=== PATIENT | female | born 1955 | race Caucasian/White ===

== ENCOUNTER 2018-04-23 06:20 | Day surgery (SDC) | payer OTHER ==
[2018-04-23] MEDS ORDERED: CEFAZOLIN 1 GM/50 ML (PMX) 50 ML IVPB (07:00)
[2018-04-23 08:27] LABS: ADD MAN DIFF? NO
[2018-04-23 08:28] LABS: BASOPHIL # 0.1 10^3/ul (0.0-0.1); BASOPHILS % 1.3 % (0.0-2.0); EOSINOPHILS # 0.1 10^3/ul (0.0-0.5); EOSINOPHILS % 2.7 % (0.0-7.0); HEMATOCRIT 40.2 % (37.0-47.0); HEMOGLOBIN 13.5 g/dl (12.0-16.0); LYMPHOCYTES # 1.8 10^3/ul (0.8-2.9); LYMPHOCYTES % 38.1 % (15.0-51.0); MEAN CORPUSCULAR HEMOGLOBIN 29.7 pg (29.0-33.0); MEAN CORPUSCULAR HGB CONC 33.6 g/dl (32.0-37.0); MEAN CORPUSCULAR VOLUME 88.4 fl (82.0-101.0); MONOCYTE # 0.4 10^3/ul (0.3-0.9); NEUTROPHIL # 2.4 10^3/ul (1.6-7.5); NEUTROPHILS % 49.7 % (39.0-77.0); PLATELET COUNT 215 10^3/UL (140-415); RED BLOOD COUNT 4.55 10^6/ul (4.20-5.40); RED CELL DISTRIBUTION WIDTH 12.2 % (11.5-14.5)
[2018-04-23 08:28] LABS: WHITE BLOOD COUNT 4.8 10^3/ul (4.8-10.8)
[2018-04-23 08:48] LABS: INR 1.02; PARTIAL THROMBOPLASTIN TIME 29.7 Sec (23.0-35.0); PROTIME 13.5 Sec (11.9-14.9); PT RATIO 1.1
[2018-04-23 08:59] LABS: ALANINE AMINOTRANSFERASE 24 IU/L (13-69); ALBUMIN 4.6 g/dl (3.3-4.9); ALBUMIN/GLOBULIN RATIO 1.39; ALKALINE PHOSPHATASE 63 IU/L (42-121); ANION GAP 7 (5-13); ASPARTATE AMINO TRANSFERASE 26 IU/L (15-46); BLOOD UREA NITROGEN 12 mg/dl (7-20); CALCIUM 9.4 mg/dl (8.4-10.2); CARBON DIOXIDE 29 mmol/L (21-31); CHLORIDE 107 mmol/L (97-110); CREATININE 0.56 mg/dl (0.44-1.00); Estimated GFR > 60 mL/min (>60); GLUCOSE 94 mg/dl (70-220); POTASSIUM 3.8 mmol/L (3.5-5.1); SODIUM 143 mmol/L (135-144); TOTAL PROTEIN 7.9 g/dl (6.1-8.1)
[2018-04-23] MEDS ORDERED: LIDOCAINE 2% (SDV) 5 ML INJ (10:00)
[2018-04-23] MEDS ORDERED: SEVOFLURANE 15 MIN (10:00)
[2018-04-23] MEDS ORDERED: CEFAZOLIN 1 GM INJ (10:00)
[2018-04-23] MEDS ORDERED: PROPOFOL 100 ML (10:17)
[2018-04-23] MEDS ORDERED: ROCURONIUM 50 MG INJ (10:22)
[2018-04-23] MEDS ORDERED: BUPIVACAINE 0.25% (MPF) 30 ML INJ (10:25)
[2018-04-23] MEDS ORDERED: BUPIVACAINE 0.25%/EPI (SDV) 10 ML INJ (11:00)
[2018-04-23] MEDS: BUPIVACAINE 0.25%/EPI (SDV) 10 ML INJ (11:06)
[2018-04-23] MEDS ORDERED: ONDANSETRON 4 MG INJ (11:12)
[2018-04-23] MEDS ORDERED: DEXAMETHASONE 4 MG/ML 1 ML INJ (11:12)
[2018-04-23] MEDS ORDERED: KETOROLAC 30 MG INJ (11:13)
[2018-04-23] MEDS ORDERED: INDIGOTINDISULFONATE 0.8% 5 ML INJ (11:53)
[2018-04-23] MEDS ORDERED: FUROSEMIDE 20 MG INJ (11:55)
[2018-04-23] MEDS ORDERED: FENTAnyl 50 MCG/ML VIAL IV ×3 (13:00)
[2018-04-23] MEDS ORDERED: DIPHENHYDRAMINE 50 MG INJ IV (13:00)
[2018-04-23] MEDS ORDERED: OXYCODONE/ACETAMINOPHEN (5/325) TAB PO ×2 (13:00)
[2018-04-23] MEDS ORDERED: HYDROmorphONE 1 MG/5 ML IV SYRINGE IV ×3 (13:00)
[2018-04-23] MEDS ORDERED: EPHEDrine SULFATE 50 MG/5 ML SYG IV (13:00)
[2018-04-23] MEDS ORDERED: LABETALOL HCL 20MG INJ IV (13:00)
[2018-04-23] MEDS ORDERED: ALBUTEROL 0.083% (NEB) 2.5 MG/3 ML AMP HHN (13:00)
[2018-04-23] MEDS ORDERED: hydrALAzine 20 MG INJ IV (13:00)
[2018-04-23] MEDS ORDERED: MEPERIDINE 25 MG INJ IV (13:00)
[2018-04-23] MEDS ORDERED: ONDANSETRON 4 MG INJ IV (13:00)
[2018-04-23 13:18] LABS: ERYTHROCYTE SEDIMENTATION RATE 13 mm/Hr (0-30)
== END 2018-04-23 14:30 | disposition home or self-care (01) ==
LOC: SDS 06:20
DX: N81.10 Cystocele, unspecified (principal); R23.4 Changes in skin texture
CPT/HCPCS: 52351; 80053; 85025; 85610; 85651; 85730; 88305